=== PATIENT | female | born 1995 | race Caucasian/White ===

== ENCOUNTER 2024-07-09 21:05 | Emergency (ER) | payer OTHER ==
[2024-07-09 21:19] VITALS: BP 133/87; PULSE 76; RESP 16; TEMP 98.5; BMI 41.0
[2024-07-09] MEDS ORDERED: IBUPROFEN 600 MG TABLET (FP) PO ONE (21:55)
[2024-07-09] MEDS: IBUPROFEN 600 MG TABLET (FP) PO ONE (22:00)
== END 2024-07-09 22:01 | disposition home or self-care (01) ==
LOC: JERFT 21:05
DX: M54.50 Low back pain, unspecified (principal); V43.52XA Car driver injured in collision with other type car in traffic accident, initial encounter; Y92.410 Unspecified street and highway as the place of occurrence of the external cause
CPT/HCPCS: 99283-25